=== PATIENT | female | born 1945 | race Caucasian/White ===

== ENCOUNTER → 2016-06-27 | Outpatient (CLI) | payer MEDICARE ==
[~2016-06-27] MED LIST: ASPIR 8181 MG PO; ATIVAN0.5 MG PO; AUGMENTIN 500-500 MG PO; CATAPRES TTS P TD; CELEXA10 MG PO; COLACE 100MG C100 MG PO; DIFLUCAN100 MG PO; GLUCERNA/RESOURC1 EA PO; HUMALOG MI100 UNIT/3 SQ; HYDRALAZINE HCL50 MG PO; LEVEMIR FL100 UNIT/1 SQ; LIPITOR TAB 2020 MG PO; LISINOPRIL5 MG PO; LOPRESSOR100 MG PO; MIRALAX PACK 171 PKT PO; NASONEX SPRAY 117 GM; NOVOLOG FL100 UNIT/1 SQ; PERCOCET 5-3251 EACH PO; PRAVACHOL20 MG PO; PRILOSEC OTC20 MG PO; PROCARDIA XL30 MG PO; RANITIDINE HCL150 M1 PO; SINGULAIR10 MG PO; SODIUM BICARBO325 MG PO; SYNTHROID125 MCG PO; TRESIBA SC; TYLENOL 325MG325 MG PO; ZYRTEC10 M3 PO
== END ==
LOC: US 14:24
PROVIDERS: Physician Assistant
DX: N13.30 Unspecified hydronephrosis (principal); R53.83 Other fatigue; N13.39 Other hydronephrosis; Z88.2 Allergy status to sulfonamides
CPT/HCPCS: 36415; 80053

== ENCOUNTER 2016-07-15 12:31 | Emergency (ER) | payer MEDICARE ==
[~2016-07-15 12:31] MED LIST changes: -CATAPRES TTS P TD; -DIFLUCAN100 MG PO; -PRAVACHOL20 MG PO; -RANITIDINE HCL150 M1 PO
[2016-07-15 20:50] LABS: RED BLOOD COUNT 3.71 M/UL (4.00-5.10); WHITE BLOOD COUNT 6.9 K/UL (4.5-11.0)
[2016-10-25] MEDS ORDERED: PRAVACHOL20 MG PO
[2016-10-25] MEDS ORDERED: DIFLUCAN100 MG PO (10:12)
[2016-10-25] MEDS ORDERED: CATAPRES TTS P TD (10:52)
== END 2016-07-16 | disposition home or self-care (01) ==
LOC: ER1 12:31
PROVIDERS: Family Medicine
DX: E11.22 Type 2 diabetes mellitus with diabetic chronic kidney disease (principal); N18.9 Chronic kidney disease, unspecified; R33.9 Retention of urine, unspecified; E11.65 Type 2 diabetes mellitus with hyperglycemia; Z88.2 Allergy status to sulfonamides; Z88.6 Allergy status to analgesic agent; Z79.82 Long term (current) use of aspirin; Z79.4 Long term (current) use of insulin; Z79.899 Other long term (current) drug therapy
CPT/HCPCS: 36415; 80053; 81001; 85025; 85610; 85730; 87086; 96360; 96361; 99283

== ENCOUNTER → 2016-08-27 | Outpatient (CLI) | payer MEDICARE ==
[~2016-08-27] MED LIST changes: +CATAPRES TTS P TD; +DIFLUCAN100 MG PO; +PRAVACHOL20 MG PO; +RANITIDINE HCL150 M1 PO
== END ==
LOC: LBRF 16:16
PROVIDERS: Internal Medicine Nephrology
DX: E87.1 Hypo-osmolality and hyponatremia (principal)
CPT/HCPCS: 80048; 82436; 82533; 83935; 84133; 84300; 84443

== ENCOUNTER 2016-08-31 12:10 | Inpatient (IN) | payer MEDICARE ==
[~2016-08-31] VITALS: Ht 160 cm; Wt 51.3 kg
[~2016-08-31 12:10] MED LIST changes: -CATAPRES TTS P TD; -DIFLUCAN100 MG PO; -PRAVACHOL20 MG PO; -RANITIDINE HCL150 M1 PO
[2016-08-31 16:27] LABS: HEMOGLOBIN 10.4 gm/dl (12.3-15.3); RED BLOOD COUNT 3.59 M/UL (4.00-5.10); WHITE BLOOD COUNT 7.5 K/UL (4.5-11.0)
[2016-08-31] MEDS ORDERED: PROCARDIA XL30 MG PO (23:57)
[2016-09-01 06:16] LABS: HEMOGLOBIN 9.6 gm/dl (12.3-15.3); RED BLOOD COUNT 3.35 M/UL (4.00-5.10); WHITE BLOOD COUNT 6.3 K/UL (4.5-11.0)
[2016-09-02 06:04] LABS: HEMOGLOBIN 9.6 gm/dl (12.3-15.3); RED BLOOD COUNT 3.33 M/UL (4.00-5.10); WHITE BLOOD COUNT 7.2 K/UL (4.5-11.0)
[2016-09-05 05:56] LABS: HEMOGLOBIN 10.5 gm/dl (12.3-15.3); RED BLOOD COUNT 3.59 M/UL (4.00-5.10)
[2016-09-05 05:59] LABS: WHITE BLOOD COUNT 9.8 K/UL (4.5-11.0)
[2016-09-06 05:17] LABS: RED BLOOD COUNT 3.48 M/UL (4.00-5.10); WHITE BLOOD COUNT 6.4 K/UL (4.5-11.0)
[2016-09-08] MEDS ORDERED: RANITIDINE HCL150 M1 PO (17:40)
[2016-10-25] MEDS ORDERED: PRAVACHOL20 MG PO
[2016-10-25] MEDS ORDERED: DIFLUCAN100 MG PO (10:12)
[2016-10-25] MEDS ORDERED: CATAPRES TTS P TD (10:52)
== END 2016-09-08 19:20 | disposition home health service (06) | DRG 699 ==
LOC: ER1 12:10 → M/S 18:32 → ZEROF 18:32 → M/S 22:54
PROVIDERS: Internal Medicine; Internal Medicine Nephrology; Physician Assistant; ADMIT Family Medicine
DX: T83.511A Infection and inflammatory reaction due to indwelling urethral catheter, initial encounter (principal); N17.9 Acute kidney failure, unspecified; E87.1 Hypo-osmolality and hyponatremia; N30.00 Acute cystitis without hematuria; E87.4 Mixed disorder of acid-base balance; Y84.6 Urinary catheterization as the cause of abnormal reaction of the patient, or of later complication, without mention of misadventure at the time of the procedure; I12.9 Hypertensive chronic kidney disease with stage 1 through stage 4 chronic kidney disease, or unspecified chronic kidney disease; E11.22 Type 2 diabetes mellitus with diabetic chronic kidney disease; B96.89 Other specified bacterial agents as the cause of diseases classified elsewhere; E11.21 Type 2 diabetes mellitus with diabetic nephropathy; E11.65 Type 2 diabetes mellitus with hyperglycemia; E11.649 Type 2 diabetes mellitus with hypoglycemia without coma; N18.3 Chronic kidney disease, stage 3 (moderate); E03.9 Hypothyroidism, unspecified; E11.69 Type 2 diabetes mellitus with other specified complication; D72.1 Eosinophilia; E78.5 Hyperlipidemia, unspecified; D64.9 Anemia, unspecified; N31.9 Neuromuscular dysfunction of bladder, unspecified; H91.90 Unspecified hearing loss, unspecified ear; F41.9 Anxiety disorder, unspecified; Z79.82 Long term (current) use of aspirin; Z79.4 Long term (current) use of insulin; Z79.899 Other long term (current) drug therapy; Z88.2 Allergy status to sulfonamides; Z87.442 Personal history of urinary calculi; Z90.710 Acquired absence of both cervix and uterus; Z90.49 Acquired absence of other specified parts of digestive tract; Z98.890 Other specified postprocedural states; Z83.3 Family history of diabetes mellitus
CPT/HCPCS: 36415; 80048; 80053; 80069; 81001; 82436; 82800; 82962; 83036; 84133; 84295; 84300; 85025; 85027; 85610; 85730; 87077; 87086; 87186; 89050; 96365; 96375; 97110; 97116; 97530; 99284; G0378; J0360; J0696; J2405; J7030; J7040; J7050

== ENCOUNTER → 2016-09-10 | Day surgery (SDC) | payer MEDICARE ==
[~2016-09-10] VITALS: Ht 157.5 cm; Wt 57.6 kg
[~2016-09-10] MED LIST changes: +CATAPRES TTS P TD; +DIFLUCAN100 MG PO; +PRAVACHOL20 MG PO; +RANITIDINE HCL150 M1 PO
[2016-09-10 10:14] LABS: HEMOGLOBIN 10.1 gm/dl (12.3-15.3); RED BLOOD COUNT 3.5 M/UL (4.00-5.10); WHITE BLOOD COUNT 8.8 K/UL (4.5-11.0)
== END | disposition home or self-care (01) ==
LOC: OR 06:56
PROVIDERS: Internal Medicine Nephrology
PROC: 0TB03ZX Excision of Right Kidney, Percutaneous Approach, Diagnostic (ICD-10-PCS; principal; 2016-09-10)
DX: N10 Acute pyelonephritis (principal); N17.0 Acute kidney failure with tubular necrosis; E11.21 Type 2 diabetes mellitus with diabetic nephropathy; N18.3 Chronic kidney disease, stage 3 (moderate); R82.79 Other abnormal findings on microbiological examination of urine; E11.22 Type 2 diabetes mellitus with diabetic chronic kidney disease
CPT/HCPCS: 36415; 77012; 80048; 82962; 85025; 88305; 88313; 88346; 88348; J0360

== ENCOUNTER → 2016-09-14 | Outpatient (CLI) | payer MEDICARE | LOC: NM 10:59 | PROVIDERS: Internal Medicine Nephrology | DX: N28.89 Other specified disorders of kidney and ureter (principal) | CPT/HCPCS: 36415; 78707; 80053; 83516; 86039; A9562 ==

== ENCOUNTER → 2016-09-24 | Outpatient (CLI) | payer MEDICARE ==
[2016-09-24 15:45] LABS: HEMOGLOBIN 10.4 gm/dl (12.3-15.3); RED BLOOD COUNT 3.58 M/UL (4.00-5.10); WHITE BLOOD COUNT 12.3 K/UL (4.5-11.0)
== END ==
LOC: LAB 14:29
PROVIDERS: Internal Medicine Nephrology
DX: N13.30 Unspecified hydronephrosis (principal); N12 Tubulo-interstitial nephritis, not specified as acute or chronic; T50.905A Adverse effect of unspecified drugs, medicaments and biological substances, initial encounter
CPT/HCPCS: 80048; 80053; 81001; 85027; 86039; 89050

== ENCOUNTER → 2016-10-03 | Outpatient (CLI) | payer MEDICARE | LOC: LAB 15:15 | PROVIDERS: Internal Medicine Nephrology | DX: N17.9 Acute kidney failure, unspecified (principal) | CPT/HCPCS: 36415; 80048 ==